=== PATIENT | male | born 1995 | race Two or more races ===

== ENCOUNTER 2017-07-26 22:03 | Emergency (ER) | payer BC, OTHER ==
[2017-07-27] MEDS: BENZONATATE 100 MG CAP PO (00:27)
[2017-07-27] MEDS: ALBUTEROL SULFATE 2.5 MG/0.5 ML INH NEB SOLN NEB (00:49)
== END 2017-07-27 02:03 | disposition home or self-care (01) ==
LOC: M ED 22:03
DX: J06.9 Acute upper respiratory infection, unspecified (principal)
CPT/HCPCS: 94664

== ENCOUNTER 2018-11-14 04:14 | Emergency (ER) | payer BC ==
[~2018-11-14] VITALS: Ht 175.3 cm; Wt 74.1 kg
[~2018-11-14 04:14] MED LIST: BREAMIS6 XX; PROAAER10 INH; TESS100C PO
--- NOTE | 2018-11-14 06:37 | REP ---
Clinical: Dyspnea. Pain on inspiration . Comparison: None . Technique: PA and lateral. Findings: The mediastinum and cardiac silhouette are normal. The lung macdonald are clear and without acute consolidation, effusion, or pneumothorax. The skeletal structures are intact and normal. Impression: 1. No acute cardiopulmonary process. Electronically Signed by Jl Miller MD 11/14/2018 06:29 A
[2018-11-14 06:45] VITALS: BP 112/72
== END 2018-11-14 06:52 | disposition home or self-care (01) ==
LOC: M ED 04:14
DX: T58.8X1A Toxic effect of carbon monoxide from other source, accidental (unintentional), initial encounter (principal); Y92.512 Supermarket, store or market as the place of occurrence of the external cause; Y93.E5 Activity, floor mopping and cleaning; Y99.0 Civilian activity done for income or pay; Z79.51 Long term (current) use of inhaled steroids; Z79.899 Other long term (current) drug therapy; Z83.3 Family history of diabetes mellitus

== ENCOUNTER → 2020-03-18 | Outpatient (CLI) | payer SELFPAY | LOC: M LABSMTC 12:56 | PROVIDERS: ATTEND Pediatrics | DX: Z20.822 Contact with and (suspected) exposure to COVID-19 (principal) ==